=== PATIENT | male | born 1945 ===

== ENCOUNTER 2022-01-04 12:59 | Outpatient (REF) | payer SELFPAY ==
[2022-01-05 13:43] LABS: Appearance Urine Cloudy; Color Urine Yellow; Glucose Urine UA Negative (Negative); Leukocyte Esterase Urine Large (3+) (Negative); Nitrite Urine Negative (Negative); Specific Gravity - Urine 1.015 (1.005-1.025); UMIC TRIGGER UA YES; Urine Blood Trace (Negative); Urine Ketones Negative (Negative); Urine Protein 300 (3+) mg/dL (Neg-Trace)
[2022-01-05 13:45] LABS: Bacteria Urine 4+ (None Seen); Hyaline Casts Urine 0-2 /LPF (0-2); Squamous Epithelial Cell Urine 0-2 /HPF (0-2); WBC Urine >50 /HPF (0-5)
== END 2022-01-04 13:00 | disposition home or self-care (01) ==
LOC: HO.LNP 12:59
PROVIDERS: Absent Provider Nurse Practitioner Adult Health; Visit Provider Nurse Practitioner Adult Health
DX: R50.9 Fever, unspecified (principal); R82.90 Unspecified abnormal findings in urine; J96.90 Respiratory failure, unspecified, unspecified whether with hypoxia or hypercapnia
CPT/HCPCS: 81001; 87086

== ENCOUNTER 2022-01-05 12:51 | Outpatient (REF) | payer SELFPAY | END 2022-01-05 12:52 | disposition home or self-care (01) | LOC: HO.LNP 12:51 | PROVIDERS: Absent Provider Nurse Practitioner Adult Health; Visit Provider Nurse Practitioner Adult Health | DX: Z13.89 Encounter for screening for other disorder (principal) ==

== ENCOUNTER 2022-10-23 23:00 | Outpatient (REF) | payer SELFPAY | END 2022-10-23 23:01 | disposition home or self-care (01) | LOC: HO.LAB 23:00 | PROVIDERS: Visit Provider Nurse Practitioner Adult Health | DX: E87.1 Hypo-osmolality and hyponatremia (principal); N17.9 Acute kidney failure, unspecified; R50.9 Fever, unspecified | CPT/HCPCS: 81001; 87086; 87088; 87186 ==